=== PATIENT | male | born 1955 | race Caucasian/White ===

== ENCOUNTER 2020-03-07 17:00 | Observation (INO) | payer OTHER ==
[2020-03-07] MEDS ORDERED: Ondansetron 4 MG Tab.DIS PO PRN (17:10)
[2020-03-07] MEDS ORDERED: Sodium Chloride 0.9% 10 ML Syringe FLUSH PRN (17:10)
[2020-03-07] MEDS ORDERED: Acetaminophen 325 MG Tab PO PRN (17:10)
[2020-03-07] MEDS ORDERED: Sodium Chloride 0.9% 1,000 ML IV SCH (17:15)
[2020-03-07] MEDS ORDERED: Sodium Polystyrene Sulfonate 15 GM/60 ML Susp 60 ML Bot PO ONE (17:16)
[2020-03-07] MEDS ORDERED: Enoxaparin 30 MG/0.3 ML Syringe SUBCUT SCH (18:00)
[2020-03-07] MEDS ORDERED: 50% Dextrose in Water 50 ML Syringe IV PRN (18:09)
[2020-03-07] MEDS ORDERED: Glucose Gel 15 GM in 37.5 GM Tube PO PRN (18:09)
--- NOTE | 2020-03-07 18:16 | PCM.HP.2 ---
H&P History of Present Illness - General Date of Service: 03/07/20 Admit Problem/Dx: Admission Diagnosis/Problem Admission Diagnosis/Problem Hyperkalemia Source of Information: Patient, Old Records, Provider, RN Notes Reviewed History Limitations: Reports: No Limitations - History of Present Illness Initial Comments - Free Text/Narative: Mr. Albert is a 64-year-old gentleman who was admitted through the emergency department to observation status, for management of hyperkalemia. He has a known history of type 1 diabetes mellitus as well as chronic kidney disease stage IV. He began to experience Covid-like symptoms approximately 9 days ago and 4 days ago was found to be Covid positive. He is noted symptoms of shortness of breath, myalgias, generalized weakness, cough, and occasional diarrhea. Because of shortness of breath he was seen and evaluated at the walk- in clinic earlier today. Oxygen saturations were found to be adequate with no evidence of significant hypoxia. Creatinine was significantly elevated with a GFR of 18. On review of past medical records 14 months ago he was found to have a GFR of 22. Potassium was elevated at 5.5. Past Medical History Cardiovascular History: Reports: High Cholesterol, Hypertension, Pulmonary Hypertension, Other (See Below) Other Cardiovascular History: Rt Heart Catheterization for Pulmonary Hypertension Genitourinary History: Reports: Other (See Below) Other Genitourinary History: Chroic Kidney Disease Neurological History: Reports: Neuropathy, Diabetic, Neuropathy, Peripheral Endocrine/Metabolic History: Reports: Diabetes, Type I, Hyperthyroidism, Hypothyroidism Insulin Pump Model and Financial Writer: Insulin Aspart - FIASP Type of Insulin Used in Pump: Insulin Aspart Who Manages Your Pump: Patient (Self) Hematologic History: Reports: Anemia - Infectious Disease History Infectious Disease History: Reports: Novel Coronavirus - Past Surgical History GI Surgical History: Reports: Colonoscopy Male Surgical History: Reports: Vasectomy Musculoskeletal Surgical History: Reports: Carpal Tunnel, Shoulder Surgery Social & Family History - Tobacco Use Tobacco Use Status *Q: Never Tobacco User Second Hand Smoke Exposure: No - Caffeine Use Caffeine Use: Reports: Soda - Recreational Drug Use Recreational Drug Use: No H&P Review of Systems - Review of Systems: Review Of Systems: See Below General: Reports: Malaise, Weakness, Fatigue, Decreased Appetite. Denies: Fever, Chills HEENT: Reports: No Symptoms Pulmonary: Reports: Shortness of Breath, Cough. Denies: Wheezing, Pleuritic Chest Pain, Sputum, Hemoptysis Cardiovascular: Reports: Dyspnea on Exertion. Denies: Chest Pain, Palpitations, Orthopnea, PND, Edema, Lightheadedness Gastrointestinal: Reports: Diarrhea. Denies: Abdominal Pain, Difficulty Swallowing, Distension, Hematemesis, Hematochezia, Melena, Nausea, Vomiting Genitourinary: Reports: No Symptoms Musculoskeletal: Reports: Muscle Pain, Muscle Stiffness Skin: Reports: No Symptoms Psychiatric: Reports: No Symptoms Neurological: Reports: No Symptoms Hematologic/Lymphatic: Reports: No Symptoms Immunologic: Reports: No Symptoms Exam - Exam Exam: See Below - Vital Signs Vital Signs: Last Vital Signs Temp 98.8 F 03/07/20 17:10 Pulse 69 03/07/20 17:10 Resp 16 03/07/20 17:10 BP 164/76 H 03/07/20 17:10 Pulse Ox 98 03/07/20 17:10 Weight: 117 lb 3 oz - Exam Quality Assessment: DVT Prophylaxis. No: Supplemental Oxygen General: Alert, Oriented, Cooperative, Mild Distress HEENT: Conjunctiva Clear, Hearing Intact, Mucosa Moist & [place], Normal Nasal Septum, Posterior Pharynx Clear, Pupils Equal Neck: Supple, Trachea Midline, +2 Carotid Pulse wo Bruit Lungs: Clear to Auscultation, Normal Respiratory Effort Cardiovascular: Regular Rate, Regular Rhythm, Normal S1, Normal S2. No: Systolic Murmur, Diastolic Murmur GI/Abdominal Exam: Soft, Non-Tender, No Organomegaly, No Distention Back Exam: Normal Inspection, Full Range of Motion Extremities: Non-Tender, No Pedal Edema Skin: Warm, Dry, Intact Neurological: Cranial Nerves Intact, Strength Equal Bilateral, Normal Speech, Normal Tone, Focal Deficit. No: Sensation Intact (Peripheral neuropathy) Neuro Extensive - Mental Status: Alert, Oriented x3, Normal Mood/Affect, Normal Cognition, Memory Intact Sepsis Event Note - Evaluation Sepsis Screening Result: No Definite Risk - Focused Exam Vital Signs: Vital Signs Temp Pulse Resp BP Pulse Ox 03/07/20 17:10 98.8 F 69 16 164/76 H 98 *Q Meaningful Use (ADM) - VTE Risk Assess *Q Each Risk Factor Represents 1 Point: Obesity ( BMI > 25 kg/m2) Total Score 1 Point Risk Factors: 1 Each Risk Factor Represents 2 Points: Age 60 - 74 Years Total Score 2 Point Risk Factors: 2 Each Risk Factor Represents 3 Points: None Total Score 3 Point Risk Factors: 0 Each Risk Factor Represents 5 Points: None Total Score 5 Point Risk Factors: 0 Venous Thromboembolism Risk Factor Score *Q: 3 Problem List Initiated/Reviewed/Updated: Yes Orders Last 24hrs: Active Orders 24 hr Category Date Time Status Patient Status [ADT] Routine ADT 03/07/20 17:10 Active Ambulate [RC] QID Care 03/07/20 17:10 Active Cardiac Monitoring [RC] .As Directed Care 03/07/20 17:13 Active Communication Order [RC] STAT Care 03/07/20 18:09 Active Diabetes Education [RC] Click to Edit Care 03/07/20 18:09 Active Height and Weight [RC] DAILY Care 03/07/20 17:10 Active Intake and Output [RC] QSHIFT Care 03/07/20 17:10 Active Notify Provider Vital Signs [RC] ASDIRECTED Care 03/07/20 17:10 Active Notify Provider [RC] PRN Care 03/07/20 18:09 Active Oxygen Therapy [RC] PRN Care 03/07/20 17:10 Active Peripheral IV Care [RC] . DIRECTED Care 03/07/20 17:14 Active Up With Assistance [RC] ASDIRECTED Care 03/07/20 17:10 Active Up to Chair [RC] QID Care 03/07/20 17:10 Active VTE/DVT Education [RC] Per Unit Routine Care 03/07/20 17:10 Active Vital Signs [RC] Q4H Care 03/07/20 17:10 Active 2 Gram Sodium Diet [DIET] Diet 03/07/20 Lunch Active C-REACTIVE PROTEIN [CHEM] AM Lab 03/08/20 05:11 Ordered CBC WITH AUTO DIFF [HEME] AM Lab 03/08/20 05:11 Ordered COMPREHENSIVE METABOLIC PN,CMP [CHEM] AM Lab 03/08/20 05:11 Ordered D Dimer [D-DIMER QUANTITATIVE] [COAG] AM Lab 03/08/20 05:11 Ordered PROCALCITONIN [CHEM] Routine Lab 03/08/20 05:00 Ordered Acetaminophen [TylenoL] Med 03/07/20 17:10 Active 650 mg PO Q4H PRN Dextrose 50% in Water Med 03/07/20 18:09 Ordered 50 ml IV ONETIME PRN Dextrose [Glutose 15] Med 03/07/20 18:09 Ordered 15 gm PO ONETIME PRN Enoxaparin [Lovenox] Med 03/07/20 18:00 Active 30 mg SUBCUT Q24H Ondansetron [Zofran ODT] Med 03/07/20 17:10 Active 4 mg PO Q6H PRN Sodium Chloride 0.9% [Normal Saline] 1,000 ml Med 03/07/20 17:15 Active IV ASDIRECTED Sodium Chloride 0.9% [Saline Flush] Med 03/07/20 17:10 Active 10 ml FLUSH ASDIRECTED PRN May Take Own Home Medications [OM.PC] Routine Oth 03/07/20 18:09 Ordered Peripheral IV Insertion Adult [OM.PC] Routine Oth 03/07/20 17:10 Ordered Resuscitation Status Routine Resus Stat 03/07/20 17:10 Ordered Medication Orders Acetaminophen (Tylenol) 650 mg PO Q4H PRN PRN Reason: Pain (Mild 1-3)/fever Dextrose (Glutose 15) 15 gm PO ONETIME PRN PRN Reason: Hypoglycemia Dextrose/Water (Dextrose 50% In Water) 50 ml IV ONETIME PRN PRN Reason: Hypoglycemia Enoxaparin Sodium (Lovenox) 30 mg SUBCUT Q24H [facility] Sodium Chloride (Normal Saline) 1,000 mls @ 125 mls/hr IV ASDIRECTED [facility] Stop: 03/08/20 03:16 Ondansetron HCl (Zofran Odt) 4 mg PO Q6H PRN PRN Reason: Nausea able to take PO Sodium Chloride (Saline Flush) 10 ml FLUSH ASDIRECTED PRN PRN Reason: Keep Vein Open Assessment/Plan Comment:: ASSESSMENT AND PLAN HYPERKALEMIA-likely secondary to chronic kidney disease and current illness with COVID-19 -Kayexalate 30 g p.o. now -Reassess potassium later tonight and in a.m. -Cautious hydration 1 L of normal saline COVID-19-no significant hypoxia noted thus far, subjectively does have symptoms of shortness of breath. -Does not currently require active treatment with remdesivir or Decadron -Consider outpatient monoclonal antibody TYPE 1 DIABETES MELLITUS-currently managed with insulin pump -Patient will manage diabetes with insulin pump during hospital stay CHRONIC KIDNEY DISEASE STAGE IV -Closely monitor renal function and urine output during hospital stay -Outpatient follow-up with nephrology MAINTENANCE ISSUES -DVT prophylaxis; Lovenox 30 mg subcu daily -GI prophylaxis; not indicated -Arizmendi catheter; not indicated -Nutrition; consistent carbohydrate diet -Nicotine dependence; not required CODE STATUS-full code ADMISSION STATUS-this patient will be admitted to observation status, expect no more than a one night hospital stay for evaluation and management of problems as outlined above. DISPOSITION-anticipate discharge to home after the hospital stay. PRIMARY CARE PROVIDER-Melody Tierney - Mortality Measure Prognosis:: Good
--- NOTE | 2020-03-08 10:35 | PCM.DCSUM1 ---
Discharge Summary - Hospital Course Brief History: Mr. Albert is a 64-year-old gentleman who was admitted as a direct admission from the clinic to observation status for management of mild hyperkalemia. - Discharge Data Discharge Date: 03/08/20 Discharge Disposition: Home, Self-Care 01 Condition: Fair - Referral to Home Health Primary Care Physician: PCP None - Discharge Diagnosis/Problem(s) (1) COVID-19 SNOMED Code(s): 079901370 ICD Code: U07.1 - COVID-19 Status: Acute Current Visit: Yes (2) Hyperkalemia SNOMED Code(s): 26568712 ICD Code: E87.5 - HYPERKALEMIA Status: Acute Current Visit: Yes (3) CKD (chronic kidney disease) stage 4, GFR 15-29 ml/min SNOMED Code(s): 543852013 ICD Code: N18.4 - CHRONIC KIDNEY DISEASE, STAGE 4 (SEVERE) Status: Acute Current Visit: Yes - Patient Summary/Data Hospital Course: Mr. Albert is a 64-year-old gentleman who was admitted as a direct admission from the walk-in clinic to observation status, for management of hyperkalemia. He has a known history of type 1 diabetes mellitus as well as chronic kidney disease stage IV. He began to experience Covid-like symptoms approximately 9 days ago and 4 days ago was found to be Covid positive. He is noted symptoms of shortness of breath, myalgias, generalized weakness, cough, and occasional diarrhea. Because of shortness of breath he was seen and evaluated at the walk- in clinic earlier today. Oxygen saturations were found to be adequate with no evidence of significant hypoxia. Creatinine was significantly elevated with a GFR of 18. On review of past medical records 14 months ago he was found to have a GFR of 22. Potassium was elevated at 5.5. He was admitted to the hospital to observation status and given a 30 g dose of Kayexalate. Follow-up potassium l evels were found to be within normal range. He manages his type 1 diabetes with insulin pump and patient was allowed to manage diabetes throughout hospital stay using his pump and continuous glucose monitoring. Plan had also been for infusion of 1 L of normal saline. This was not performed as we were unable to obtain an IV site. Renal function improved modestly and by the morning of discharge his creatinine was 3.3 with a GFR of 19. This was felt to be fairly close to his probable baseline. Because of his diabetes and renal dysfunction he was felt to be at higher risk for the Covid infection and he was offered outpatient monoclonal antibody infusion which he refused. Activity will be as tolerated and he will resume his diabetic diet. Follow-up appointment will be scheduled with his primary care provider within 1 week. - Patient Instructions Diet: Diabetic Diet Activity: As Tolerated Other/Special Instructions: Please schedule follow-up appointment with primary care provider within 1 week - Discharge Plan *PRESCRIPTION DRUG MONITORING PROGRAM REVIEWED*: Not Applicable *COPY OF PRESCRIPTION DRUG MONITORING REPORT IN PATIENT ALISIA: Not Applicable - Discharge Summary/Plan Comment DC Time >30 min.: No - Patient Data Vitals - Most Recent: Last Vital Signs Temp 96.4 F L 03/08/20 08:46 Pulse 72 03/08/20 08:46 Resp 16 03/08/20 08:46 BP 124/61 03/08/20 08:46 Pulse Ox 96 03/08/20 08:46 Weight - Most Recent: 117 lb 3 oz Lab Results - Last 24 hrs: Laboratory Results - last 24 hr 03/07/20 03/08/20 03/08/20 Range/Units 23:11 05:00 05:00 WBC 3.1 L (4.5-11.0) K/uL RBC 4.11 L (4.30-5.90) M/uL Hgb 12.3 (12.0-15.0) g/dL Hct 36.7 L (40.0-54.0) % MCV 89 (80-98) fL MCH 30 (27-31) pg MCHC 34 (32-36) % Plt Count 141 L (150-400) K/uL Neut % (Auto) 58 (36-66) % Lymph % (Auto) 23 L (24-44) % [place] % (Auto) 18 H (2-6) % Eos % (Auto) 1 L (2-4) % Baso % (Auto) 0 (0-1) % D-Dimer, Quantitative (0.0-500.0) ng/mL Sodium (140-148) mmol/L Potassium 3.5 L (3.6-5.2) mmol/L Chloride (100-108) mmol/L Carbon Dioxide (21-32) mmol/L Anion Gap (5.0-14.0) mmol/L BUN (7-18) mg/dL Creatinine (0.8-1.3) mg/dL Est Cr Clr Drug Dosing mL/min Estimated GFR (MDRD) (>60) Glucose (74-106) mg/dL Calcium (8.5-10.1) mg/dL Total Bilirubin (0.2-1.0) mg/dL AST (15-37) U/L ALT (12-78) U/L Alkaline Phosphatase (46-116) U/L C-Reactive Protein (0.0-0.3) mg/dL Total Protein (6.4-8.2) g/dL Albumin (3.4-5.0) g/dL Globulin (2.3-3.5) g/dL Albumin/Globulin Ratio (1.2-2.2) Procalcitonin < 0.05 ng/mL 03/08/20 03/08/20 Range/Units 05:00 05:00 WBC (4.5-11.0) K/uL RBC (4.30-5.90) M/uL Hgb (12.0-15.0) g/dL Hct (40.0-54.0) % MCV (80-98) fL MCH (27-31) pg MCHC (32-36) % Plt Count (150-400) K/uL Neut % (Auto) (36-66) % Lymph % (Auto) (24-44) % [place] % (Auto) (2-6) % Eos % (Auto) (2-4) % Baso % (Auto) (0-1) % D-Dimer, Quantitative 572.32 H (0.0-500.0) ng/mL Sodium 130 L (140-148) mmol/L Potassium 5.1 (3.6-5.2) mmol/L Chloride 99 L (100-108) mmol/L Carbon Dioxide 19 L (21-32) mmol/L Anion Gap 17.1 H (5.0-14.0) mmol/L BUN 53 H (7-18) mg/dL Creatinine 3.3 H (0.8-1.3) mg/dL Est Cr Clr Drug Dosing 17.23 mL/min Estimated GFR (MDRD) 19 L (>60) Glucose 346 H (74-106) mg/dL Calcium 8.3 L (8.5-10.1) mg/dL Total Bilirubin 0.3 (0.2-1.0) mg/dL AST 19 (15-37) U/L ALT 26 (12-78) U/L Alkaline Phosphatase 112 (46-116) U/L C-Reactive Protein 0.62 H (0.0-0.3) mg/dL Total Protein 6.5 (6.4-8.2) g/dL Albumin 3.0 L (3.4-5.0) g/dL Globulin 3.5 (2.3-3.5) g/dL Albumin/Globulin Ratio 0.9 L (1.2-2.2) Procalcitonin ng/mL Med Orders - Current: Current Medications Acetaminophen (Tylenol) 650 mg PO Q4H PRN PRN Reason: Pain (Mild 1-3)/fever Dextrose (Glutose 15) 15 gm PO ONETIME PRN PRN Reason: Hypoglycemia Dextrose/Water (Dextrose 50% In Water) 50 ml IV ONETIME PRN PRN Reason: Hypoglycemia Enoxaparin Sodium (Lovenox) 30 mg SUBCUT Q24H [facility] Last Admin: 03/07/20 20:35 Dose: 30 mg Documented by: Ondansetron HCl (Zofran Odt) 4 mg PO Q6H PRN PRN Reason: Nausea able to take PO Sodium Chloride (Saline Flush) 10 ml FLUSH ASDIRECTED PRN PRN Reason: Keep Vein Open Discontinued Medications Sodium Chloride (Normal Saline) 1,000 mls @ 125 mls/hr IV ASDIRECTED [facility] Stop: 03/08/20 01:16 Sodium Polystyrene Sulfonate (Kayexalate) 30 gm PO ONETIME ONE Stop: 03/07/20 17:17 Last Admin: 03/07/20 20:35 Dose: 30 gm Documented by: - Exam Quality Assessment: Reports: DVT Prophylaxis General: Reports: Alert, Oriented, Cooperative, Mild Distress Lungs: Reports: Clear to Auscultation, Normal Respiratory Effort Cardiovascular: Reports: Regular Rate, Regular Rhythm, No Murmurs GI/Abdominal Exam: Soft, Non-Tender, No Organomegaly, No Distention
== END 2020-03-08 11:15 | disposition home or self-care (01) ==
LOC: JP.2SS 17:00 → UNDOADMIN 17:00 → JP.MS 17:00
PROVIDERS: ADMIT Hospitalist; ATTEND Hospitalist
DX: E87.5 Hyperkalemia (principal); U07.1 COVID-19; E10.22 Type 1 diabetes mellitus with diabetic chronic kidney disease; N18.4 Chronic kidney disease, stage 4 (severe); E78.00 Pure hypercholesterolemia, unspecified; I12.9 Hypertensive chronic kidney disease with stage 1 through stage 4 chronic kidney disease, or unspecified chronic kidney disease; E03.9 Hypothyroidism, unspecified; E10.42 Type 1 diabetes mellitus with diabetic polyneuropathy; I27.20 Pulmonary hypertension, unspecified; Z98.890 Other specified postprocedural states
CPT/HCPCS: 36415; 80053; 84132; 84145; 85025; 85379; 86140; A9270-GY; G0378; G0379; J1650

== ENCOUNTER 2024-08-10 07:29 | Day surgery (SDC) | payer MEDICARE, BC ==
[~2024-08-10 07:29] MED LIST: Midazolam 1 MG/ML 2 ML SDV ONE; Propofol 200 MG/20 ML SDV ONE; fentaNYL 100 MCG/2 ML SDV ONE
[2024-08-10] MEDS ORDERED: Lactated Ringers 1,000 ML IV SCH (08:00)
[2024-08-10] MEDS: Dextrose 5%-Lactated Ringers 1,000 ML IV SCH (08:32)
== END 2024-08-10 10:24 | disposition home or self-care (01) ==
LOC: JP.SDS 07:29
PROVIDERS: ATTEND Family Medicine
DX: Z12.11 Encounter for screening for malignant neoplasm of colon (principal); E11.22 Type 2 diabetes mellitus with diabetic chronic kidney disease; I12.0 Hypertensive chronic kidney disease with stage 5 chronic kidney disease or end stage renal disease; N18.6 End stage renal disease
CPT/HCPCS: G0121; J2250; J2704; J3010; J7121; 00812-QZ; 45378

== ENCOUNTER 2024-12-08 11:04 | Emergency (ER) | payer MEDICARE, BC ==
[2024-12-08 11:58] LABS: PLATELET COUNT,PLT 217 K/uL (130-375); RED BLOOD CELL COUNT 3.85 M/uL (4.14-5.76); WHITE BLOOD CELL COUNT,WBC 21.7 K/uL (3.2-11.0)
[2024-12-08 12:01] LABS: BAND ABSOLUTE MAN 1.52 K/uL; BAND PERCENT MAN 7 % (5-11); MONOCYTES ABSOLUTE MAN 1.52 K/uL (0.20-0.90); MONOCYTES PERCENT MAN 7 % (2-6); NEUTROPHILS ABSOLUTE MAN 18.66 K/uL (1.0-7.6); SEG NEUTROPHILS PERCENT MAN 86 % (36-66)
[2024-12-08 12:33] LABS: A/G RATIO 0.7 (1.2-2.2); ALANINE AMINOTRANSFERASE,ALT 20 U/L (12-78); ASPARTATE AMNIOTRANSFERASE,AST 13 U/L (15-37); BILIRUBIN TOTAL 0.4 mg/dL (0.2-1.0); BLOOD UREA NITROGEN,BUN 69 mg/dL (7-18); CARBON DIOXIDE,CO2 27 mmol/L (21-32); CHLORIDE,CL 94 mmol/L (100-108); EST CRCL DRUG DOSING (CG) 7.96 mL/min; ESTIMATED GFR 5 mL/min (>60); GLUCOSE RANDOM 161 mg/dL (74-106); POTASSIUM,K 4.2 mmol/L (3.6-5.2); PROTEIN TOTAL,TP 6.9 g/dL (6.4-8.2); SODIUM,NA 134 mmol/L (140-148)
[2024-12-08 12:37] LABS: CREATININE 9.6 mg/dL (0.8-1.3)
== END 2024-12-08 13:25 ==
LOC: JP.ED 11:04
DX: J18.9 Pneumonia, unspecified organism (principal); I10 Essential (primary) hypertension; E78.00 Pure hypercholesterolemia, unspecified; E10.42 Type 1 diabetes mellitus with diabetic polyneuropathy; E03.9 Hypothyroidism, unspecified; Z79.82 Long term (current) use of aspirin; Z79.4 Long term (current) use of insulin; Z79.84 Long term (current) use of oral hypoglycemic drugs; Z79.899 Other long term (current) drug therapy; Z79.890 Hormone replacement therapy; Z88.8 Allergy status to other drugs, medicaments and biological substances; Z88.1 Allergy status to other antibiotic agents; Z91.048 Other nonmedicinal substance allergy status; Z91.041 Radiographic dye allergy status
CPT/HCPCS: 36415; 71045; 80053; 83605; 85025; 86140; 87040; 96365; 99285; A9270; J0696

== ENCOUNTER 2025-01-11 08:57 | Emergency (ER) | payer MEDICARE, BC ==
[2025-01-11 09:32] LABS: BASOPHILS ABSOLUTE AUTO 0.04 K/uL (0.00-0.10); BASOPHILS PERCENT AUTO 0.6 % (0.1-1.3); EOSINOPHILS ABSOLUTE AUTO 0.33 K/uL (0.00-0.40); EOSINOPHILS PERCENT AUTO 5.3 % (0.0-5.4); IMMATURE GRAN ABSOLUTE AUTO 0.05 K/uL (0.00-0.23); IMMATURE GRAN PERCENT AUTO 0.8 % (0.0-0.7); LYMPHOCYTES ABSOLUTE AUTO 0.43 K/uL (0.8-3.3); LYMPHOCYTES PERCENT AUTO 7.0 % (11.4-47.7); MONOCYTES ABSOLUTE AUTO 0.81 K/uL (0.20-0.90); MONOCYTES PERCENT AUTO 13.1 % (3.3-12.6); NEUTROPHILS ABSOLUTE AUTO 4.51 K/uL (1.0-7.6); NEUTROPHILS PERCENT AUTO 73.2 % (40.0-78.1); PLATELET COUNT,PLT 201 K/uL (130-375); RED BLOOD CELL COUNT 4.58 M/uL (4.14-5.76); WHITE BLOOD CELL COUNT,WBC 6.2 K/uL (3.2-11.0)
[2025-01-11 09:55] LABS: A/G RATIO 0.8 (1.2-2.2); ALANINE AMINOTRANSFERASE,ALT 38 U/L (12-78); ASPARTATE AMNIOTRANSFERASE,AST 25 U/L (15-37); BILIRUBIN TOTAL 0.5 mg/dL (0.2-1.0); BLOOD UREA NITROGEN,BUN 44 mg/dL (7-18); CARBON DIOXIDE,CO2 23 mmol/L (21-32); CHLORIDE,CL 89 mmol/L (100-108); POTASSIUM,K 3.7 mmol/L (3.6-5.2); PROTEIN TOTAL,TP 7.5 g/dL (6.4-8.2); SODIUM,NA 129 mmol/L (140-148)
[2025-01-11 10:03] LABS: TROPONIN I HIGH SENSITIVITY 88.9 pg/mL (<=60.3)
[2025-01-11 10:16] LABS: BASE EXCESS ARTERIAL 0.3 mm/L; BICARBONATE,ARTERIAL 20.6 mmol/L (22.0-26.0); O2 SATURATION ARTERIAL 98.9 % (95.0-98.0); OXYHEMOGLOBIN 96.8 %; PCO2 ARTERIAL 22.8 mmHg (35.0-42.0); PO2 ARTERIAL 109.0 mmHg (75.0-100.0); TOTAL HEMOGLOBIN 13.6 g/dL (13.5-18.0)
[2025-01-11 10:38] LABS: GLUCOSE RANDOM 203 mg/dL (74-106)
[2025-01-11 10:39] LABS: CREATININE 11.0 mg/dL (0.8-1.3); EST CRCL DRUG DOSING (CG) 7.05 mL/min; ESTIMATED GFR 5 mL/min (>60)
== END 2025-01-11 14:05 ==
LOC: JP.ED 08:57
DX: R55 Syncope and collapse (principal); I12.9 Hypertensive chronic kidney disease with stage 1 through stage 4 chronic kidney disease, or unspecified chronic kidney disease; N18.4 Chronic kidney disease, stage 4 (severe); E78.00 Pure hypercholesterolemia, unspecified; E10.42 Type 1 diabetes mellitus with diabetic polyneuropathy; E03.9 Hypothyroidism, unspecified; E10.22 Type 1 diabetes mellitus with diabetic chronic kidney disease; Z79.82 Long term (current) use of aspirin; Z79.899 Other long term (current) drug therapy; Z79.4 Long term (current) use of insulin; Z88.8 Allergy status to other drugs, medicaments and biological substances; Z91.041 Radiographic dye allergy status; Z88.5 Allergy status to narcotic agent; Z91.014 Allergy to mammalian meats
CPT/HCPCS: 36415; 36600; 71045; 80053; 82803; 83605; 84484; 85025; 86140; 87040; 93005; 96360; 99285; J7030